=== PATIENT | female | born 1990 | race Caucasian/White ===

== ENCOUNTER 2018-11-01 20:56 | Emergency (ER) | payer OTHER ==
[~2018-11-01] VITALS: Ht 157.5 cm; Wt 56.1 kg
[2018-11-01 21:00] VITALS: Ht 157.5 cm; Wt 56.1 kg
[2018-11-01] MEDS ORDERED: D-ME118S24 PO (21:31)
[2018-11-01] MEDS ORDERED: AMOX500C2 PO (21:31)
[2018-11-01 21:48] VITALS: BP 108/70; PULSE 96; RESP 20
--- NOTE | 2018-11-02 01:52 | ERD ---
ER Documentation Chief Complaint Chief Complaint fever x 4 days. also c/o cough/runny nose HPI 28-year-old female presents for fever times 4 days. She also states that she has cough and runny nose. She also states that she has pain around her nose area. She states that her temperature was 103.8 at home she took Tylenol with some improvement. The cough is noted to be productive of phlegm. She has similar symptom is in the past about 2 months ago and was given a Z-Chris with improvement in her symptoms. ROS All systems reviewed and are negative except as per history of present illness. Medications Home Meds Active Scripts Amoxicillin* (Amoxicillin*) 500 Mg Cap, 500 MG PO Q8 for 5 Days, #15 CAP Prov:KIMBER MAHAN DO 11/01/18 D-Methorphan Hb/P-Epd HCl/Bpm (Pofkadifwr-Bjhsqsthfue-Zo Syr) 118 Ml Syrup, 5 ML PO Q4H PRN for COUGH, #1 BOTTLE Prov:KIMBER MAHAN DO 11/01/18 Allergies Allergies: Coded Allergies: No Known Drug Allergies (Verified Allergy, Unknown, 11/01/18) PMhx/Soc Medical and Surgical Hx: pt denies Surgical Hx History of Surgery: No Anesthesia Reaction: No Hx Neurological Disorder: Yes (Migraine) Hx Respiratory Disorders: No Hx Cardiac Disorders: No Hx Psychiatric Problems: No Hx Miscellaneous Medical Probl: Yes (Ovarian Cyst) Hx Alcohol Use: No Hx Substance Use: No Hx Tobacco Use: No Smoking Status: Never smoker Physical Exam Vitals Vital Signs Date Temp Pulse Resp B/P (MAP) Pulse Ox O2 O2 Flow FiO2 Time Delivery Rate 11/01/18 98.5 96 20 108/70 98 Room Air 21:48 (83) 11/01/18 100.2 102 18 124/74 98 21:00 (91) Physical Exam Const: No acute distress Head: Atraumatic, tenderness to palpation of the paranasal sinus area Eyes: Normal Conjunctiva ENT: Normal External Ears, Nose and Mouth, no tonsillar swelling or exudate noted Neck: Full range of motion. No meningismus. Resp: Clear to auscultation bilaterally, no wheezing rales or rhonchi Cardio: Regular rate and rhythm, no murmurs Skin: No petechiae or rashes Ext: No cyanosis, or edema Neur: Awake and alert Psych: Normal Mood and Affect Procedures/MDM Medical Decision Making: Differential diagnosis includes but not limited to acute sinusitis, upper respiratory infection, pneumonia, sepsis. Patient appeared well on physical examination, nontoxic appearing. Lungs were clear to auscultation bilaterally. There is low suspicion for pneumonia, sepsis. Given patient's fever and tenderness in the. Nasal sinus area patient possibly has a sinusitis Patient given prescription for amoxicillin, Bromfed. Patient advised to follow up with PCP in 1-2 days. Patient advised to return to ED for new or worsening symptoms. Patient stable on discharge from the ED. Disclaimer: Inadvertent spelling and grammatical errors are likely due to EHR/dictation software use and do not reflect on the overall quality of patient care. Also, please note that the electronic time recorded on this note does not necessarily reflect the actual time of the patient encounter. Departure Diagnosis: Primary Impression: Sinusitis Sinusitis location: maxillary Chronicity: acute Recurrence: not specified as recurrent Qualified Codes: J01.00 - Acute maxillary sinusitis, unspecified Condition: Fair Patient Instructions: Sinusitis, Abx Tx Referrals: [facility] YOU HAVE RECEIVED A MEDICAL SCREENING EXAM AND THE RESULTS INDICATE THAT YOU DO NOT HAVE A CONDITION THAT REQUIRES URGENT TREATMENT IN THE EMERGENCY DEPARTMENT. FURTHER EVALUATION AND TREATMENT OF YOUR CONDITION CAN WAIT UNTIL YOU ARE SEEN IN YOUR DOCTORS OFFICE WITHIN THE NEXT 1-2 DAYS. IT IS YOUR RESPONSIBILITY TO MAKE AN APPOINTMENT FOR FOLOW-UP CARE. IF YOU HAVE A PRIMARY DOCTOR --you should call your primary doctor and schedule an appointment IF YOU DO NOT HAVE A PRIMARY DOCTOR YOU CAN CALL OUR PHYSICIAN REFERRAL HOTLINE AT IF YOU CAN NOT AFFORD TO SEE A PHYSICIAN YOU CAN CHOSE FROM THE FOLLOWING [facility]LY [facility], [facility] [address] [facility]. [facility] [address] [facility] [address] [facility]. [facility] [address] [facility] [address] [facility]. [facility]. [address] Additional Instructions: Call your primary care doctor TOMORROW for an appointment during the next 1-2 days.See the doctor sooner or return here if your condition worsens before your appointment time. KIMBER MAHAN DO Nov 02, 2018 01:52
== END 2018-11-01 21:50 | disposition home or self-care (01) ==
LOC: FTE 20:56
DX: J01.00 Acute maxillary sinusitis, unspecified (principal)
CPT/HCPCS: 99283

== ENCOUNTER 2019-02-10 23:53 | Emergency (ER) | payer OTHER ==
[~2019-02-10] VITALS: Ht 160 cm; Wt 56.3 kg
[~2019-02-10 23:53] MED LIST: AMOX500C2 PO; D-ME118S24 PO
[2019-02-11 00:04] VITALS: BP 133/61; PULSE 91; RESP 18; Ht 160 cm; Wt 56.3 kg
--- NOTE | 2019-02-12 00:51 | ERD ---
ER Documentation Chief Complaint Chief Complaint vaginal bleed,positive preg test at home,pelvic pain HPI 28 year old G0 F presents to the ED with progressively worsening vaginal spotting x1 day. Pt states she has soaked 1 pad in total. Also reports non- radiating lower abdominal cramping, mild. She took a home test which was positive but would like to check her serum beta hcg levels as well. LNMP January 14, 2019. No nausea, vomiting, fevers, chills, back pain, flank pain, urinary sx, abnormal vaginal discharge or any other sx. ROS All systems reviewed and are negative except as per history of present illness. Medications Home Meds Active Scripts Amoxicillin* (Amoxicillin*) 500 Mg Cap, 500 MG PO Q8 for 5 Days, #15 CAP Prov:KIMBER MAHAN DO 11/01/18 D-Methorphan Hb/P-Epd HCl/Bpm (Wbjwizqvbt-Bkslnijwmgp-Ab Syr) 118 Ml Syrup, 5 ML PO Q4H PRN for COUGH, #1 BOTTLE Prov:KIMBER MAHAN DO 11/01/18 Allergies Allergies: Coded Allergies: No Known Drug Allergies (Verified Allergy, Unknown, 11/01/18) PMhx/Soc History of Surgery: No Anesthesia Reaction: No Hx Neurological Disorder: Yes (Migraine) Hx Respiratory Disorders: No Hx Cardiac Disorders: No Hx Psychiatric Problems: No Hx Miscellaneous Medical Probl: Yes (Ovarian Cyst) Hx Alcohol Use: No Hx Substance Use: No Hx Tobacco Use: No Physical Exam Vitals Vital Signs Date Temp Pulse Resp B/P (MAP) Pulse Ox O2 O2 Flow FiO2 Time Delivery Rate 02/11/19 98.0 91 18 133/61 99 00:04 (85) Physical Exam Const: No acute distress Head: Atraumatic Eyes: Normal Conjunctiva ENT: Normal External Ears, Nose and Mouth. Neck: Full range of motion. No meningismus. Resp: Clear to auscultation bilaterally Cardio: Regular rate and rhythm, no murmurs Abd: Soft, non tender, non distended. Normal bowel sounds Skin: No petechiae or rashes Back: No midline or flank tenderness Ext: No cyanosis, or edema Neur: Awake and alert Psych: Normal Mood and Affect Result Diagram: 02/11/196 02/11/19425 Results 24 hrs Laboratory Tests Test 02/11/19 04:26 White Blood Count 9.1 10^3/ul Red Blood Count 4.45 10^6/ul Hemoglobin 12.6 g/dl Hematocrit 39.3 % Mean Corpuscular Volume 88.3 fl Mean Corpuscular Hemoglobin 28.3 pg Mean Corpuscular Hemoglobin Concent 32.1 g/dl Red Cell Distribution Width 12.7 % Platelet Count 278 10^3/UL Mean Platelet Volume 10.6 fl Immature Granulocytes % 0.300 % Neutrophils % 69.0 % Lymphocytes % 22.5 % Monocytes % 6.9 % Eosinophils % 0.9 % Basophils % 0.4 % Nucleated Red Blood Cells % 0.0 /100WBC Immature Granulocytes # 0.030 10^3/ul Neutrophils # 6.3 10^3/ul Lymphocytes # 2.1 10^3/ul Monocytes # 0.6 10^3/ul Eosinophils # 0.1 10^3/ul Basophils # 0.0 10^3/ul Nucleated Red Blood Cells # 0.0 10^3/ul Urine Color YELLOW Urine Clarity CLEAR Urine pH 5.0 Urine Specific [place] 1.023 Urine Ketones TRACE mg/dL Urine Nitrite NEGATIVE mg/dL Urine Bilirubin NEGATIVE mg/dL Urine Urobilinogen NEGATIVE mg/dL Urine Leukocyte Esterase NEGATIVE Jairon/ul Urine Microscopic RBC 173 /HPF Urine Microscopic WBC 4 /HPF Urine Mucus MODERATE /HPF Urine Hemoglobin 3+ mg/dL Urine Glucose NEGATIVE mg/dL Urine Total Protein NEGATIVE mg/dl Sodium Level 141 mmol/L Potassium Level 3.5 mmol/L Chloride Level 106 mmol/L Carbon Dioxide Level 25 mmol/L Anion Gap 10 Blood Urea Nitrogen 13 mg/dl Creatinine 0.56 mg/dl Est Glomerular Filtrat Rate mL/min > 60 mL/min Glucose Level 98 mg/dl Calcium Level 10.0 mg/dl Total Bilirubin 0.5 mg/dl Direct Bilirubin 0.00 mg/dl Indirect Bilirubin 0.5 mg/dl Aspartate Amino Transf (AST/SGOT) 25 IU/L Alanine Aminotransferase (ALT/SGPT) 15 IU/L Alkaline Phosphatase 55 IU/L Total Protein 8.9 g/dl Albumin 5.0 g/dl Globulin 3.90 g/dl Albumin/Globulin Ratio 1.28 Beta HCG, Quantitative 8.8 mIU/ml Procedures/MDM LABS CBC: no e/o of systemic infection or severe anemia CMP: no e/o severe acidosis, alkalosis, renal failure, diabetic ketoacidosis, liver disease Urine: + hematuria. No significant leuk esterase or pyuria Ucx: pending beta hc.8 Otherwise within normal limits, unremarkable or as documented above. DIAGNOSTIC IMAGING: PROCEDURE: US Pelvis. CLINICAL INDICATION: vaginal bleeding TECHNIQUE: Multiple sonographic images of the pelvis were obtained utilizing a transabdominal technique. The images were reviewed on a PACS workstation. Very limited study. Endovaginal images cannot be performed. COMPARISON: None. FINDINGS: The uterus is normal in size and demonstrates a normal appearance of the myometrium. The endometrium is not well seen. No intrauterine gestation is noted. The ovaries are not visualized. No free fluid is present within the pelvis.. RPTAT: AA IMPRESSION: Very limited study. Repeat study is recommended. No gross intrauterine gestation visualized. Ovaries are not visualized. Endometrium is not well seen. Differential diagnosis includes early , missed or ectopic . Follow-up ultrasound and HCG levels is recommended. MEDICAL DECISION MAKIN28 year old G0 F presents with vaginal bleeding status post 2 positive home tests. She is afebrile here and vital signs are normal. Abdominal exam is benign. Labs as above without significant infection or anemia. Beta hcg levels low. No IUP seen on pelvic US. This could represent spontaneous vs very early . Less likely ectopic . Pt is hemodynamically stable and can be managed as outpt. Recommend OB follow up and repeat beta hcg levels in 48 hours. Strict return precautions discussed. PRESCRIPTIONS: None SPECIALIST FOLLOW UP RECOMMENDED: OBGYN Departure Diagnosis: Primary Impression: Vaginal bleeding Condition: Stable Patient Instructions: Bleeding During Early Referrals: [facility] [place] [address] [facility] [address] [place], [place] [phone] OFFICE FAX ZACK BRITO [address] [place] [place] [id number] [address] [place] [address] [place], [place] [id number] STEVEN PUENTES [address] [facility], [address] [address] ANIL MCNALLY [address] [facility], [place], [place] [phone] [facility] [address] [place] [address] [address] [facility], [facility] [address] - JONAS CAMARILLO [address], [facility] [address] [address] [place], M[place] [address] [facility]. [address], [place] [address] [facility] [address] [place], [place] [phone] Additional Instructions: Please take copies of your labs and ultrasound and see your [facility] WORKER in 2 days. You need to repeat blood beta hCG levels to correlate. I would also recommend a ultrasound and about 1 week. Return here for any worsening vaginal bleeding, discharge, urinary symptoms or any other complaints. MATTIE RODRIGUEZ PA-C Feb 12, 2019 00:50
== END 2019-02-11 06:26 | disposition home or self-care (01) ==
LOC: FTE 23:53
DX: O20.9 Hemorrhage in early pregnancy, unspecified (principal); R10.2 Pelvic and perineal pain; Z3A.00 Weeks of gestation of pregnancy not specified
CPT/HCPCS: 36415; 76801; 80053; 81001; 84702; 85025; 86900; 86901; 87086; Z7502